=== PATIENT | male | born 1980 | race Caucasian/White ===

== ENCOUNTER 2025-03-12 03:13 | Emergency (ER) | payer SELFPAY ==
[~2025-03-12] VITALS: Ht 177.8 cm; Wt 91.0 kg
[2025-03-12 03:27] VITALS: O2SAT 99
[2025-03-12] MEDS: TETANUS, DIPHTHERIA, PERTUSSIS VAC/PF 0.5ML (>10YR OLD) IM ONE (04:07)
[2025-03-12 04:17] LABS: *AMPHETAMINES SCREEN URINE PRESUMPTIVE POSITIVE (NEGATIVE); *BARBITURATES SCREEN URINE NEGATIVE (NEGATIVE); *BENZODIAZEPINES SCREEN URINE PRESUMPTIVE POSITIVE (NEGATIVE)
[2025-03-12 04:18] LABS: *COCAINE SCREEN URINE NEGATIVE (NEGATIVE); CANNABINOID URINE SCREEN PRESUMPTIVE POSITIVE (NEGATIVE); ECSTASY MDMA SCREEN URINE CONF.TEST INDICATED (NEGATIVE); METHADONE URINE SCREEN NEGATIVE (NEGATIVE); OPIATES URINE SCREEN NEGATIVE (NEGATIVE); PHENCYCLIDINE URINE SCREEN NEGATIVE (NEGATIVE)
[2025-03-12 04:20] LABS: CREATININE 1.6 mg/dL (0.6-1.3)
[2025-03-12 04:21] LABS: ETHANOL BLOOD < 10 mg/dL (<10); PROTEIN TOTAL 6.4 g/dL (6.0-8.3); UREA NITROGEN BLOOD 16 mg/dL (9-23)
[2025-03-12 04:22] LABS: ASPARTATE AMINOTRANSFERASE 44 IU/L (<34)
[2025-03-12 04:23] LABS: BILIRUBIN DIRECT 0.3 mg/dL (<=3.0); BILIRUBIN TOTAL 0.9 mg/dL (0.1-1.0)
[2025-03-12] MEDS: HALOPERIDOL LACTATE 5MG/ML VIAL IM ONE (04:25)
[2025-03-12] MEDS: DIPHENHYDRAMINE 50MG/ML VIAL IM ONE (04:25)
[2025-03-12 04:26] LABS: HEMATOCRIT. 41.1 % (42.0-52.0); HEMOGLOBIN. 13.6 g/dL (14.0-18.0); MEAN PLATELET VOLUME 9.6 fl (7.4-10.4); PLATELET 256 x1000/uL (130-400); RED BLOOD CELL COUNT 4.12 mill/uL (4.7-6.1); RED CELL DISTRIBUTION WIDTH 13.0 % (11.6-14.6)
[2025-03-12] MEDS: LORAZEPAM 2MG/ML UD SYRINGE IM NR (04:27)
[2025-03-12] MEDS: LIDOCAINE HCL/EPINEPHRINE 1%-EPI 1:100,000 20ML VIAL INFIL ONE (04:30)
[2025-03-12 04:35] LABS: INR 1.1
[2025-03-12 04:53] LABS: EOSINOPHILS % MANUAL 1.0 % (0.0-5.0); LYMPHOCYTES % MANUAL 8.0 % (20.0-50.0); MONOCYTES % MANUAL 10.0 % (2.0-8.0); NEUTROPHILS % MANUAL 81.0 % (45.0-75.0); PLATELET ESTIMATE NORMAL
[2025-03-12] MEDS: SODIUM CHLORIDE 0.9% 1,000 ML IV ONE ×2 (05:42)
[2025-03-12 09:32] LABS: HEMATOCRIT. 40.0 % (42.0-52.0); HEMOGLOBIN. 13.1 g/dL (14.0-18.0); MEAN PLATELET VOLUME 9.0 fl (7.4-10.4); PLATELET 242 x1000/uL (130-400); RED BLOOD CELL COUNT 3.95 mill/uL (4.7-6.1); RED CELL DISTRIBUTION WIDTH 13.0 % (11.6-14.6)
[2025-03-12 10:57] LABS: BAND% 4.0 % (1.0-6.0); LYMPHOCYTES % MANUAL 10.0 % (20.0-50.0); MONOCYTES % MANUAL 4.0 % (2.0-8.0); NEUTROPHILS % MANUAL 82.0 % (45.0-75.0); PLATELET ESTIMATE NORMAL
[2025-03-12] MEDS ORDERED: POTASSIUM CHLORIDE 20MEQ TABLET SR PO ONE (17:15)
[2025-03-12] MEDS: POTASSIUM CHLORIDE 20MEQ TABLET SR PO SCH (17:29)
[2025-03-12] MEDS ORDERED: OLANZAPINE 5MG TABLET PO SCH (21:00)
[2025-03-12 21:13] VITALS: BP 100/48; PULSE 104; RESP 18; TEMP 36.7; O2SAT 98
== END 2025-03-12 21:34 ==
LOC: ER 03:25
DX: S51.811A Laceration without foreign body of right forearm, initial encounter (principal); F29 Unspecified psychosis not due to a substance or known physiological condition; F15.90 Other stimulant use, unspecified, uncomplicated; Z20.822 Contact with and (suspected) exposure to COVID-19; Z79.899 Other long term (current) drug therapy; Z98.890 Other specified postprocedural states; X58.XXXA Exposure to other specified factors, initial encounter; Y93.89 Activity, other specified; Y92.89 Other specified places as the place of occurrence of the external cause; Y99.8 Other external cause status
CPT/HCPCS: 80076; 80305; 80048; 80307; 80329; 80320; 85025; 85610; 85730; 36415; 73090; 90715; 93005; 12001; 90471; 96360; 96372; 99285; 87426; J1200; J1630; J2004; J2060; Z7610 ×2; G0480